=== PATIENT | female | born 1950 | race Caucasian/White ===

== ENCOUNTER 2020-03-25 12:41 | Outpatient (CLI) | payer OTHER | END 2020-03-25 12:49 | disposition home or self-care (01) | LOC: SONOGRAMA 12:41 | PROVIDERS: ATTEND Pathology Anatomic Pathology & Clinical Pathology | DX: E04.2 Nontoxic multinodular goiter (principal); D34 Benign neoplasm of thyroid gland; E04.8 Other specified nontoxic goiter; E07.89 Other specified disorders of thyroid ==

== ENCOUNTER 2020-09-06 10:04 | Outpatient (CLI) | payer OTHER | END 2020-09-06 10:13 | disposition home or self-care (01) | LOC: SONOGRAMA 10:04 | PROVIDERS: ATTEND Pathology Anatomic Pathology & Clinical Pathology | DX: E04.2 Nontoxic multinodular goiter (principal); D34 Benign neoplasm of thyroid gland ==

== ENCOUNTER 2022-07-20 10:32 | Outpatient (CLI) | payer OTHER | END 2022-07-20 10:34 | disposition home or self-care (01) | LOC: SONOGRAMA 10:32 | PROVIDERS: ATTEND Pathology Anatomic Pathology & Clinical Pathology | DX: D34 Benign neoplasm of thyroid gland (principal); E04.2 Nontoxic multinodular goiter; E04.9 Nontoxic goiter, unspecified ==